=== PATIENT | female | born 1955 | race Caucasian/White ===

== ENCOUNTER 2017-02-02 21:35 | Inpatient (IN) | payer BC, MEDICAID ==
[~2017-02-02] VITALS: Ht 162.6 cm; Wt 93.9 kg
[~2017-02-02 21:35] MED LIST: ACIPHEX20 MG ORAL; ATARAX50 MG ORAL; ATIVAN1 MG PO; CRESTOR10 M1 ORAL; NO HOME MEDS; OMEPRAZOLE40 M1 ORAL; PEPCID AC10 MG PO; PROTONIX40 MG ORAL; XANAX0.5 MG ORAL; aciphex; zantac PO
[2017-02-02 21:47] VITALS: BP 166/85
[2017-02-02] MEDS ORDERED: ASPIRIN81 MG ORAL (21:48)
[2017-02-02] MEDS ORDERED: IBUPROFEN600 MG ORAL (21:48)
--- NOTE | 2017-02-02 21:54 | Emergency Room Report ---
History of Present Illness General Chief Complaint: Pain Source: Patient Present Illness HPI Patient presents with complaints of left-sided chest discomfort Patient reports that she has had pain there before off-and-on however this episode was different because she pain in her left arm Denies any change with exertion or position Pain is 5/10 heaviness Also has some discomfort to both of her legs Denies any fevers or chills denies any pleurisy Essentially points to below the left breast area for the discomfort Allergies: Coded Allergies: LIDOCAINE (Unverified Adverse Reaction, Unknown, 07/27/13) COPIED FROM NURSING Patient History Past Medical History: see triage record Pertinent Family History: none Now: No Reviewed Nursing Documentation: PMH: Agreed, PSxH: Agreed Nursing Documentation-PMH Hx Cardiac Problems: Yes Hx Cancer: No Hx Gastrointestinal Problems: Yes - hiatial hernia reflux Hx Neurological Problems: Yes Hx Dizziness: Yes Review of Systems All Other Systems: negative except mentioned in HPI Physical Exam Vital Signs Date Time Temp Pulse Resp B/P Pulse Ox O2 Delivery O2 Flow Rate FiO2 02/02/17 21:43 97.3 66 18 166/85 99 Room Air Sp02 EP Interpretation: reviewed, normal General Appearance: well appearing, no apparent distress Head: normocephalic, atraumatic Eyes: bilateral eye EOMI, bilateral eye PERRL ENT: hearing grossly normal, normal pharynx, TMs + canals normal, uvula midline Neck: full range of motion, supple, no meningismus, no bony tend Respiratory: lungs clear, normal breath sounds, no rhonchi, no respiratory distress, no retraction, no accessory muscle use Cardiovascular #1: normal peripheral pulses, regular rate, rhythm, no edema, no gallop, no JVD, no murmur Gastrointestinal: normal bowel sounds, non tender, soft, no mass, no organomegaly, non-distended, no guarding, no hernia, no pulsatile mass, no rebound Genitourinary: no CVA tenderness Musculoskeletal: normal inspection Neurologic: oriented x3, responsive, principal statistical programmer III-XII nml as tested, motor strength/ tone normal, sensory intact Psychiatric: mood/affect normal Skin: normal color, no rash, warm/dry, palpation normal Lymphatic: normal inspection, no adenopathy Medical Decision Making Diagnostic Impression: Primary Impression: Pancreatitis Additional Impression: UTI (urinary tract infection) ER Course Multiple differentials considered including but not limited to GI bleed, infectious pathology Patient's blood work reveals elevated lipase Patient also reveals significant bladder infection Antibiotics are provided Pain medication Patient refusing IV contrast for a CT and therefore limited CAT scan was obtained Not showing any acute pathology Patient has done better and requires admission for further evaluation Labs Test 02/02/17 21:51 White Blood Count 9.3 K/UL (4.8-10.8) Red Blood Count 4.86 M/UL (4.20-5.40) Hemoglobin 14.6 G/DL (12.0-16.0) Hematocrit 42.9 % (37.0-47.0) Mean Corpuscular Volume 88 FL (80-99) Mean Corpuscular Hemoglobin 30.0 PG (27.0-31.0) Mean Corpuscular Hemoglobin Concent 34.0 G/DL (32.0-36.0) Red Cell Distribution Width 11.6 % (11.6-14.8) Platelet Count 253 K/UL (150-450) Mean Platelet Volume 7.1 FL (6.5-10.1) Neutrophils (%) (Auto) 56.7 % (45.0-75.0) Lymphocytes (%) (Auto) 34.9 % (20.0-45.0) Monocytes (%) (Auto) 6.2 % (1.0-10.0) Eosinophils (%) (Auto) 1.5 % (0.0-3.0) Basophils (%) (Auto) 0.7 % (0.0-2.0) Sodium Level 138 mEQ/L (135-145) Potassium Level 3.8 mEQ/L (3.4-4.9) Chloride Level 99 mEQ/L (98-107) Carbon Dioxide Level 27 mEQ/L (20-30) Anion Gap 12 (5-15) Blood Urea Nitrogen 17 mg/dL (7-23) Creatinine 1.0 mg/dL (0.5-0.9) Estimat Glomerular Filtration Rate 56.4 mL/min (>60) Glucose Level 100 mg/dL (74-106) Calcium Level 10.2 mg/dL (8.6-10.2) Total Bilirubin 0.3 mg/dL (0.0-1.2) Aspartate Amino Transf (AST/SGOT) 15 U/L (5-40) Alanine Aminotransferase (ALT/SGPT) 10 U/L (3-33) Alkaline Phosphatase 67 U/L (35-104) Total Creatine Kinase 58 U/L (26-140) Creatine Kinase MB 1.7 ng/mL (< 3.8) Creatine Kinase MB Relative Index 2.9 Troponin I < 0.30 ng/mL (<=0.30) Pro-B-Type Natriuretic Peptide 72 pg/mL (0-125) Total Protein 7.6 g/dL (6.6-8.7) Albumin 4.9 g/dL (3.5-5.2) Globulin 2.7 g/dL Albumin/Globulin Ratio 1.8 (1.0-2.7) Rhythm Strip Diag. Results EP Interpretation: yes Rate: 66 Rhythm: NSR, no PVC's, no ectopy Chest X-Ray Diagnostic Results EP Interpretation: Yes Findings: no consolidation, no effusion, no pneumothorax Number of Views: 1 CT/MRI/US Diagnostic Results CT/MRI/US Diagnostic Results : Impression CT abdomen pelvis no obvious acute disease Last Vital Signs Date Time Temp Pulse Resp B/P Pulse Ox O2 Delivery O2 Flow Rate FiO2 02/02/17 21:43 97.3 66 18 166/85 99 Room Air Status: improved Disposition: ADMITTED INPATIENT Condition: Serious PHU OLIVARES D.O. Feb 02, 2017 21:54
[2017-02-02 22:06] LABS: BASOPHILS % (AUTO) 0.7 % (0.0-2.0); EOSINOPHILS % (AUTO) 1.5 % (0.0-3.0); LYMPHOCYTES % (AUTO) 34.9 % (20.0-45.0); MEAN CORPUSCULAR VOLUME 88 FL (80-99); MEAN PLATELET VOLUME 7.1 FL (6.5-10.1); MONOCYTES % (AUTO) 6.2 % (1.0-10.0); NEUTROPHILS % (AUTO) 56.7 % (45.0-75.0); PLATELET COUNT 253 K/UL (150-450); RED BLOOD COUNT 4.86 M/UL (4.20-5.40); RED CELL DISTRIBUTION WIDTH 11.6 % (11.6-14.8); WHITE BLOOD COUNT 9.3 K/UL (4.8-10.8)
[2017-02-02] MEDS ORDERED: Mylanta II UD 30ml ORAL ONE (22:15)
[2017-02-02] MEDS ORDERED: Dicyclomine HCl 10mg/5ml oral soln ORAL ONE (22:15)
[2017-02-02 22:20] LABS: TROPONIN I < 0.30 ng/mL (<=0.30)
[2017-02-02 22:23] LABS: ALBUMIN/GLOBULIN RATIO 1.8 (1.0-2.7); CALCIUM 10.2 mg/dL (8.6-10.2); GLOMERULAR FILTRATION RATE 56.4 mL/min (>60); POTASSIUM 3.8 mEQ/L (3.4-4.9); TOTAL PROTEIN 7.6 g/dL (6.6-8.7)
[2017-02-02 22:34] LABS: CKMB 1.7 ng/mL (< 3.8)
[2017-02-02 23:47] VITALS: BP 154/81
[2017-02-03] VITALS (7 sets, daily range): BP systolic 114–143; BP diastolic 47–87
[2017-02-03] MEDS ORDERED: Nitroglycerin Subl 0.4mg tab (Bottle Of 25) SL PRN (00:30)
[2017-02-03 08:04] LABS: TROPONIN I < 0.30 ng/mL (<=0.30)
[2017-02-03] MEDS: Aspirin Baby 81mg ORAL SCH (09:55)
--- NOTE | 2017-02-03 10:36 | Diagnostic Imaging Report ---
Indication: SOB Technique: One view of the chest Comparison: 12/19/2014 Findings: Heart size is upper limits of normal. Lungs and pleural spaces are clear. There is no significant interim change Impression: No acute process This agrees with the preliminary interpretation provided by the emergency room physician
--- NOTE | 2017-02-03 14:41 | History and Physical ---
History of Present Illness General Date patient seen: Feb 03, 2017 Time patient seen: 14:41 Reason for Hospitalization: Chest pain Present Illness HPI 61yo female with pmh of HLD, GERD who presents with chest pain. Pt c/o L substernal chest pain that has been going on for 2 weeks. She has intermittent episodes, feels like heaviness Not clearly associated with exertion. Recently she started having L arm pain and numbness. Also has h/o GERD w/ occasional burning sensation type chest pain. Pt concerned abt clot in leg and wants an U/ S. No f/c, n/v, d/c, SOB, diaphoresis, cough. Non-smoker. Allergies: Coded Allergies: LIDOCAINE (Unverified Adverse Reaction, Unknown, 07/27/13) COPIED FROM NURSING Medication History Scheduled Aspirin* (Aspirin*), 81 MG ORAL DAILY, (Reported) Ibuprofen* (Motrin*), 600 MG ORAL FOUR TIMES A DAY, (Reported) Pantoprazole* (Protonix*), 40 MG ORAL BID, (Reported) Rosuvastatin Calcium (Crestor), 10 MG ORAL DAILY, (Reported) [zantac], PO DAILY, (Reported) Scheduled PRN Hydroxyzine HCl (Hydroxyzine Pamoate), 50 MG ORAL QHS PRN for insomnia Miscellaneous Medications Famotidine (Pepcid Ac), 10 MG PO, (Reported) [No Home Meds], (Reported) [aciphex], (Reported) Patient History History Provided By: Patient Healthcare decision maker pt A&Ox4 Resuscitation status Full Code Advanced Directive on File Past Medical/Surgical History Past Medical/Surgical History: (1) HLD (hyperlipidemia) (2) GERD (gastroesophageal reflux disease) Family History Family History: Patient reports no known family medical history. Social History Social History: (1) No significant social history Review of Systems ROS Narrative CONSTITUTIONAL: No weight loss, fever, chills, weakness or fatigue. HEENT: Eyes: No visual loss, blurred vision, double vision or yellow sclerae. Ears, Nose, Throat: No hearing loss, sneezing, congestion, runny nose or sore throat. SKIN: No rash or itching. CARDIOVASCULAR: +chest pain, chest pressure or chest discomfort. No palpitations or edema. RESPIRATORY: No shortness of breath, cough or sputum. GASTROINTESTINAL: No anorexia, nausea, vomiting or diarrhea. No abdominal pain or blood. NEUROLOGICAL: No headache, dizziness, syncope, paralysis, ataxia, numbness or tingling in the extremities. No change in bowel or bladder control. MUSCULOSKELETAL: No muscle, back pain, joint pain or stiffness. HEMATOLOGIC: No anemia, bleeding or bruising. LYMPHATICS: No enlarged nodes. No history of splenectomy. PSYCHIATRIC: No history of depression or anxiety. ENDOCRINOLOGIC: No reports of sweating, cold or heat intolerance. No polyuria or polydipsia. ALLERGIES: No history of asthma, hives, eczema or rhinitis. Physical Exam Physical Exam Narrative General: alert, cooperative, no distress, appears stated age Head: normocephalic, without obvious abnormality, atraumatic Eyes: conjunctivae/corneas clear. PERRL, EOM's intact Throat: lips, mucosa, and tongue normal. MMM Neck: supple, symmetrical, trachea midline, and no JVD Lungs: clear to auscultation bilaterally Heart: regular rate and rhythm, S1, S2 normal, no murmur, click, rub or gallop Abdomen: soft, non-tender, non-distended, bowel sounds normal; no masses or organomegaly Extremities: extremities normal, atraumatic, no cyanosis or edema Pulses: 2+ and symmetric Skin: skin color, texture, turgor normal; no rashes or lesions Neurologic: grossly normal, no focal deficits Last 24 Hour Vital Signs Date Time Temp Pulse Resp B/P Pulse Ox O2 Delivery O2 Flow Rate FiO2 02/03/17 12:00 65 02/03/17 12:00 96.9 73 17 120/56 97 Room Air 70 02/03/17 08:00 67 02/03/17 08:00 96.8 72 17 120/87 99 Room Air 74 02/03/17 04:21 97.5 75 20 114/47 96 Room Air 02/03/17 04:00 63 02/03/17 01:46 97.7 69 18 137/71 97 02/03/17 01:00 71 02/03/17 00:50 97.5 76 16 143/72 100 Room Air 02/03/17 00:50 97.5 76 16 143/72 100 Room Air 02/02/17 23:47 97.5 64 18 154/81 100 Room Air 02/02/17 21:47 97.3 69 16 166/85 100 Room Air 02/02/17 21:43 97.3 66 18 166/85 99 Room Air Intake and Output 02/02/17 02/03/17 19:00 07:00 Intake Total 500 ml Output Total 1 ml Balance 499 ml Intake IV Total 500 ml Other 0 ml Output Urine Total 1 ml Laboratory Tests Test 02/02/17 21:51 02/03/17 07:10 White Blood Count 9.3 K/UL (4.8-10.8) Red Blood Count 4.86 M/UL (4.20-5.40) Hemoglobin 14.6 G/DL (12.0-16.0) Hematocrit 42.9 % (37.0-47.0) Mean Corpuscular Volume 88 FL (80-99) Mean Corpuscular Hemoglobin 30.0 PG (27.0-31.0) Mean Corpuscular Hemoglobin Concent 34.0 G/DL (32.0-36.0) Red Cell Distribution Width 11.6 % (11.6-14.8) Platelet Count 253 K/UL (150-450) Mean Platelet Volume 7.1 FL (6.5-10.1) Neutrophils (%) (Auto) 56.7 % (45.0-75.0) Lymphocytes (%) (Auto) 34.9 % (20.0-45.0) Monocytes (%) (Auto) 6.2 % (1.0-10.0) Eosinophils (%) (Auto) 1.5 % (0.0-3.0) Basophils (%) (Auto) 0.7 % (0.0-2.0) Sodium Level 138 mEQ/L (135-145) Potassium Level 3.8 mEQ/L (3.4-4.9) Chloride Level 99 mEQ/L (98-107) Carbon Dioxide Level 27 mEQ/L (20-30) Anion Gap 12 (5-15) Blood Urea Nitrogen 17 mg/dL (7-23) Creatinine 1.0 mg/dL (0.5-0.9) H Estimat Glomerular Filtration Rate 56.4 mL/min (>60) Glucose Level 100 mg/dL (74-106) Calcium Level 10.2 mg/dL (8.6-10.2) Total Bilirubin 0.3 mg/dL (0.0-1.2) Aspartate Amino Transf (AST/SGOT) 15 U/L (5-40) Alanine Aminotransferase (ALT/SGPT) 10 U/L (3-33) Alkaline Phosphatase 67 U/L (35-104) Total Creatine Kinase 58 U/L (26-140) Creatine Kinase MB 1.7 ng/mL (< 3.8) Creatine Kinase MB Relative Index 2.9 Troponin I < 0.30 ng/mL (<=0.30) < 0.30 ng/mL (<=0.30) Pro-B-Type Natriuretic Peptide 72 pg/mL (0-125) Total Protein 7.6 g/dL (6.6-8.7) Albumin 4.9 g/dL (3.5-5.2) Globulin 2.7 g/dL Albumin/Globulin Ratio 1.8 (1.0-2.7) Height (Feet): 5 Height (Inches): 4.00 Weight (Pounds): 207 Medications Current Medications Medications (Trade) Dose Ordered Sig/[place] Route PRN Reason Start Time Stop Time Status Last Admin Dose Admin Acetaminophen (Tylenol) 650 mg Q4H PRN ORAL Mild Pain (Pain Scale 1-3) 02/03/17 00:30 03/05/17 00:29 Aspirin (ASA) 81 mg DAILY ORAL 02/03/17 09:00 03/05/17 08:59 02/03/17 09:55 Dextrose (Dextrose 50%) STAT PRN IV Hypoglycemia 02/03/17 00:30 03/05/17 00:29 Nitroglycerin (Ntg) 0.4 mg Every 5 Minutes PRN SL Prn Chest Pain 02/03/17 00:30 03/05/17 00:29 Assessment/Plan Problem List: (1) Chest pain, atypical ICD Codes: R07.89 - Other chest pain SNOMED: 610754921 (2) GERD (gastroesophageal reflux disease) ICD Codes: K21.9 - Gastro-esophageal reflux disease without esophagitis SNOMED: 142699074 (3) HLD (hyperlipidemia) ICD Codes: E78.5 - Hyperlipidemia, unspecified SNOMED: 76783524 Status: stable Assessment/Plan Admit inpt Tele monitor Trend trop/EKG Check TTE Stress test ordered Check lipid panel, A1C, TSH PPI ASA, statin DVT Prophylaxis: SCD, HSQ Code Status: Full Hospital Classification Declaration: Based on this initial evaluation, and depending on the patient's clinical course, I anticipate that this patient will require hospitalization for 2-3 days for chest pain and close respiratory/ hemodynamic monitoring. Disposition: Once the patient is stable to leave the hospital, I anticipate the patient will likely be discharged to the following environment: home I spent 70 minutes on this patient's case, and 38 minutes were dedicated to counseling and/or care coordination. Discussed with patient/family, nursing staff, SW/CM regarding clinical status, treatment course, and disposition planning. Time of note may not reflect time of encounter. Jessica Banks M.D. Feb 03, 2017 14:41
[2017-02-03 15:50] LABS: HEMOGLOBIN A1C 5.4 % (< 6.0)
[2017-02-03 15:51] LABS: TROPONIN I < 0.30 ng/mL (<=0.30)
[2017-02-03 16:13] LABS: THYROID STIMULATING HORMONE 1.81 uIU/mL (0.300-4.500)
[2017-02-03] MEDS ORDERED: Mylanta II UD 30ml ORAL PRN (16:15)
[2017-02-03 16:24] LABS: CHOLESTEROL/HDL RATIO 3.2 (3.3-4.4)
[2017-02-03] MEDS ORDERED: ALPRAZolam 0.5mg tab ORAL PRN (22:00)
[2017-02-04 00:03] VITALS: BP 123/81
[2017-02-04 04:00] VITALS: BP 119/79
[2017-02-04 07:09] LABS: BASOPHILS % (AUTO) 0.9 % (0.0-2.0); LYMPHOCYTES % (AUTO) 34.6 % (20.0-45.0); MEAN CORPUSCULAR HEMOGLOBIN 29.9 PG (27.0-31.0); MEAN CORPUSCULAR HGB CONC 34.1 G/DL (32.0-36.0); MEAN CORPUSCULAR VOLUME 88 FL (80-99); MEAN PLATELET VOLUME 7.6 FL (6.5-10.1); MONOCYTES % (AUTO) 6.5 % (1.0-10.0); NEUTROPHILS % (AUTO) 56.1 % (45.0-75.0); PLATELET COUNT 261 K/UL (150-450); RED BLOOD COUNT 4.69 M/UL (4.20-5.40); RED CELL DISTRIBUTION WIDTH 11.7 % (11.6-14.8); WHITE BLOOD COUNT 6.7 K/UL (4.8-10.8)
[2017-02-04 07:31] LABS: CALCIUM 9.3 mg/dL (8.6-10.2); CREATININE 1.1 mg/dL (0.5-0.9); GLOMERULAR FILTRATION RATE 50.5 mL/min (>60); POTASSIUM 4.2 mEQ/L (3.4-4.9)
[2017-02-04 07:46] VITALS: BP 136/75
[2017-02-04] MEDS: Aspirin Baby 81mg ORAL SCH (08:24)
[2017-02-04 11:20] VITALS: BP 136/70
--- NOTE | 2017-02-06 22:29 | Cardiology Report ---
APPROVED REPORT EKG Measurement Heart [id number] Normal sinus rhythm Nonspecific ST abnormality Abnormal ECG
--- NOTE | 2017-02-07 08:46 | Cardiology Report ---
APPROVED REPORT EXAM: Two-dimensional and M-mode echocardiogram with Doppler and color Doppler. INDICATION Chest Pain M-Mode DIMENSIONS IVSd1.3 (0.7-1.1cm)Left Atrium (MM)4.3 (1.6-4.0cm) LVDd4.2 (3.5-5.6cm)Aortic Root2.6 (2.0-3.7cm) PWd1.3 (0.7-1.1cm)Aortic Cusp Exc.1.8 (1.5-2.0cm) LVDs2.7 (2.5-4.0cm) PWs1.6 cm Normal left ventricular chamber size, systolic function and wall motion. Left ventricular ejection fraction estimated to be 60-65 %. Borderline mild left ventricular hypertrophy. Anterior Echo-free space, may be due to pericardial fat or effusion. Left and right atrial sizes at upper limits of normal. Right ventricular chamber size is within normal limits. Mild focal aortic valve sclerosis with adequate cusp excursion. Mildly thickened mitral valve leaflets with normal excursion. Mitral annulus and aortic root calcification. Normal pulmonic valve structure. Normal tricuspid valve structure. IVC at normal size with physiologic collapse. A color flow and spectral Doppler study was performed and revealed: Moderate mitral regurgitation. Mitral diastolic velocities suggest reduced left ventricular relaxation c/w mild LV diastolic dysfunction (Grade I). Trace to mild tricuspid regurgitation. Tricuspid systolic velocities suggests peak right ventricular systolic pressure of 49 mmHg, consistent with moderate pulmonary hypertension.
--- NOTE | 2017-02-08 12:58 | Diagnostic Imaging Report ---
APPROVED REPORT CPT Code: 03343 Present Symptoms Lower Extremity Pain: Bilateral BILATERAL: Imaging reveals a patent deep venous system bilaterally. There is no evidence of thrombus within the femoral, popliteal or tibial segments. The greater saphenous veins are also within normal limits. Doppler indicates normal spontaneous flow within these segments.
--- NOTE | 2017-02-09 16:44 | Discharge Summary ---
Discharge Summary Hospital Course Date of Admission Feb 03, 2017 at 00:10 Date of Discharge Feb 04, 2017 at 15:46 Admitting Diagnosis Chest pain Reason for Hospitalization: R/o ACS HPI 61yo female with pmh of HLD, GERD who presents with chest pain. Pt c/o L substernal chest pain that has been going on for 2 weeks. She has intermittent episodes, feels like heaviness Not clearly associated with exertion. Recently she started having L arm pain and numbness. Also has h/o GERD w/ occasional burning sensation type chest pain. Pt concerned abt clot in leg and wants an U/ S. No f/c, n/v, d/c, SOB, diaphoresis, cough. Non-smoker. Hospital Course [facility] She was ruled out for ACS with serial trop/EKG. TTE showed normal EF. Stress test unremarkable. Discharge Medications Continued Medications: Aspirin* (Aspirin*) 81 Mg Tab.chew 81 MG ORAL DAILY, TAB Famotidine (Pepcid Ac) 10 Mg Tablet 10 MG PO Hydroxyzine HCl (Hydroxyzine Pamoate) 50 Mg Tab 50 MG ORAL QHS PRN for insomnia, #12 TAB Pantoprazole* (Protonix*) 40 Mg Tablet.dr 40 MG ORAL BID, #60 TAB 0 Refills Rosuvastatin Calcium (Crestor) 10 Mg Tab 10 MG ORAL DAILY, TAB Discharge Condition Upon Discharge: stable Discharge Disposition Patient was discharged to Home (01) Discharge Diagnoses: (1) Chest pain, atypical (2) HLD (hyperlipidemia) (3) GERD (gastroesophageal reflux disease) Jessiac Banks M.D. Feb 09, 2017 16:44
== END 2017-02-04 15:46 | disposition home or self-care (01) | DRG 243 ==
LOC: EMR 22:05 → 2E 02-03 00:10 → EDBEDREQ 02-03 00:23
DX: K21.9 Gastro-esophageal reflux disease without esophagitis (principal); E78.5 Hyperlipidemia, unspecified; R07.89 Other chest pain; Z88.4 Allergy status to anesthetic agent
CPT/HCPCS: 36415; 71010; 80048; 80053; 80061; 82550; 82553; 83036; 83735; 83880; 84443; 84484; 85025; 93005; 93017; 93306; 93350; 93970

== ENCOUNTER 2017-03-03 22:38 | Emergency (ER) | payer MEDICAID ==
[~2017-03-03 22:38] MED LIST changes: +ASPIRIN81 MG ORAL; +IBUPROFEN600 MG ORAL
== END 2017-03-03 22:40 | disposition left against medical advice (07) ==
LOC: EMR 22:40
DX: M79.89 Other specified soft tissue disorders (principal); Z53.21 Procedure and treatment not carried out due to patient leaving prior to being seen by health care provider